=== PATIENT | female | born 1990 | race Two or more races ===

== ENCOUNTER 2017-08-06 05:09 | Emergency (ER) | payer SELFPAY ==
[~2017-08-06] VITALS: Ht 167.6 cm; Wt 72.6 kg
--- NOTE | 2017-08-06 05:15 | PHYS DOC ---
Past Medical History Past Medical History: No Pertinent History Additional Past Medical Histor: BACK STRAIN 2014 Past Surgical History: Tubal ligation Additional Information: NON SMOKER Alcohol Use: None Drug Use: None Adult General Chief Complaint Chief Complaint: LOWER BACK PAIN OR INJURY HPI HPI Patient is a 27 year old female who presents with low back strain. She was at work states at 2:30 in the morning she was lifting boxes that are anywhere from 50 pounds a 70 pounds and she felt a pull. First was in her left lower back now is radiated over to right lower back and goes down both buttock areas. Does not proceed any further distally. She states she feels spasm in her back. No saddle anesthesia, no bowel bladder incontinence, no numbness tingling down the legs or weakness of the legs. She her prior incidence of this back in 2014. No recent fever or illness. No urinary complaints. Last patient. With April however she is irregular. Review of Systems Review of Systems Constitutional: Denies fever or chills Eyes: Denies change in visual acuity, redness, or eye pain HENT: Denies nasal congestion or sore throat Respiratory: Denies cough or shortness of breath Cardiovascular: No chest pain GI: Denies abdominal pain, nausea, vomiting, bloody stools or diarrhea : Denies dysuria or hematuria Musculoskeletal: POS back pain; no leg pain Integument: Denies rash or skin lesions Neurologic: Denies headache, focal weakness or sensory changes; no bowel or bladder incontinence. All other systems were reviewed and found to be within normal limits, except as documented in this note. Current Medications Current Medications Current Medications Medications (Trade) Dose Ordered Sig/[facility] Start Time Stop Time Status Last Admin Dose Admin Ketorolac Tromethamine (Toradol Im) 60 mg 1X ONCE 08/06/17 05:45 08/06/17 05:46 DC Allergies Allergies Allergies Coded Allergies Type Severity Reaction Last Updated Verified No Known Drug Allergies 04/11/15 No Physical Exam Physical Exam Constitutional: Well developed, well nourished, no acute distress, non-toxic appearance. HENT: Normocephalic, atraumatic, bilateral external ears normal, oropharynx moist, no oral exudates, nose normal. Eyes: PERRLA, EOMI, conjunctiva normal, no discharge. Neck: Normal range of motion, no tenderness, supple, no stridor. Cardiovascular:Heart rate regular rhythm, no murmur Lungs & Thorax: Bilateral breath sounds clear to auscultation Abdomen: Bowel sounds normal, soft, no tenderness, no masses, no pulsatile masses. Skin: Warm, dry, no erythema, no rash. Back: bilateral paraspinal spasm noted. No pain on palpation of vertebral spinous processes. No skin changes. Extremities: No tenderness, no cyanosis, no clubbing, ROM intact, no edema. Neurologic: Alert and oriented X 3, normal motor function, normal sensory function, no focal deficits noted. Psychologic: Affect normal, judgement normal, mood normal. Current Patient Data Vital Signs Vital Signs Date Time Temp Pulse Resp B/P (MAP) Pulse Ox O2 Delivery O2 Flow Rate FiO2 08/06/17 05:31 98.9 87 20 98 Room Air 98.9 Lab Values Laboratory Tests Test 08/06/17 05:20 08/06/17 05:23 Urine Collection Type Unknown Urine Color Yellow Urine Clarity Cloudy Urine pH 5.5 Urine Specific Chemult >=1.030 Urine Protein Negative mg/dL (NEG-TRACE) Urine Glucose (UA) Negative mg/dL (NEG) Urine Ketones (Stick) Negative mg/dL (NEG) Urine Blood Negative (NEG) Urine Nitrite Negative (NEG) Urine Bilirubin Negative (NEG) Urine Urobilinogen Dipstick 0.2 mg/dL (0.2 mg/dL) Urine Leukocyte Esterase Negative (NEG) Urine RBC 0 /HPF (0-2) Urine WBC Occ /HPF (0-4) Urine Squamous Epithelial Cells Mod /LPF Urine Bacteria Moderate /HPF (0-FEW) Urine Mucus Mod /LPF POC Urine HCG, Qualitative Hcg negative (Negative) Course & Med Decision Making Course & Med Decision Making Evaluated patient upon arrival. She has no evidence of cauda equina syndrome. She has had this prior actually while at work lifting. She states she plans on filing this workman's comp. 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 She did drive herself here. SHe was given a Toradol shot. UCG was negative, urinalysis was negative. She was instructed to follow up for her work comp clinic and to contact them today. I have spoken with the patient and/or caregivers. I have explained the patient' s condition, diagnosis and treatment plan based on the information available to me at this time. I have answered the patient's and/or caregiver's questions and addressed any concerns. The patient and/or caregivers have as good an understanding of the patient's diagnosis, condition and treatment plan as can be expected at this point. The patient's condition is stable and appropriate for discharge from the emergency department. The patient will pursue further outpatient evaluation with the primary care physician or other designated or consulting physician as outlined in the discharge instructions. The patient and/or caregivers are agreeable to this plan of care and follow-up instructions have been explained in detail. The patient and/or caregivers have received these instructions in written format and have expressed an understanding of the discharge instructions. The patient and/or caregivers are aware that any significant change in condition or worsening of symptoms should prompt an immediate return to this or the closest emergency department or a call to 911. Dragon Disclaimer Dragon Disclaimer This electronic medical record was generated, in whole or in part, using a voice recognition dictation system. Departure Departure Impression: Primary Impression: Low back pain Disposition: HOME, SELF-CARE Condition: STABLE Referrals: NO PCP (PCP) Patient Instructions: Back Pain, Adult Additional Instructions: YOU WERE GIVEN A TORADOL SHOT HERE. YOU CAN DRIVE ON THE MEDICATION. YOU NEED TO CONTACT YOUR WORK TODAY. Scripts Orphenadrine Citrate (ORPHENADRINE CITRATE) 100 Mg Tablet.er 1 TAB PO BID, #30 TAB 1 Refill Prov: ROEL TORO MD 08/06/17 Naproxen (NAPROSYN) 500 Mg Tablet 1 TAB PO BID, #30 TAB 1 Refill Prov: ROEL TORO MD 08/06/17 Problem Qualifiers Primary Impression: Low back pain Chronicity: acute Back pain laterality: bilateral Sciatica presence: without sciatica Qualified Codes: M54.5 - Low back pain ROEL TORO MD Aug 06, 2017 05:15
[2017-08-06 05:29] LABS: BILIRUBIN,URINE NEGATIVE (NEG); GLUCOSE,URINE NEGATIVE (NEG); NITRITE,URINE NEGATIVE (NEG); PH,URINE 5.5; PROTEIN,URINE NEGATIVE (NEG-TRACE); UROBILINOGEN,URINE 0.2 mg/dL (0.2 mg/dL)
[2017-08-06 05:39] LABS: BACTERIA,URINE MODERATE /HPF (0-FEW); RBC,URINE 0 /HPF (0-2); SQUAMOUS EPITHELIAL CELL,UR MOD /LPF; WBC,URINE OCC /HPF (0-4)
[2017-08-06] MEDS ORDERED: KETOROLAC 60 MG/2 ML INJ. IM ONE (05:45)
[2017-08-06] MEDS ORDERED: NAPR-683 PO (05:59)
[2017-08-06] MEDS ORDERED: ORPH100T PO (05:59)
[2017-08-06 06:07] VITALS: BP 113/76
== END 2017-08-06 06:21 | disposition home or self-care (01) ==
LOC: ER 05:09
DX: M54.5 Low back pain (principal)
CPT/HCPCS: 81001; 81025; 87086; 96372; 99284; J1885

== ENCOUNTER 2017-11-03 18:15 | Emergency (ER) | payer SELFPAY, OTHER | END 2017-11-03 19:11 | disposition home or self-care (01) | LOC: ER 18:15 | DX: M54.5 Low back pain (principal); Z98.51 Tubal ligation status; Y04.0XXA Assault by unarmed brawl or fight, initial encounter; Y93.89 Activity, other specified; Y99.8 Other external cause status; Y92.89 Other specified places as the place of occurrence of the external cause | CPT/HCPCS: 99283 ==